=== PATIENT | male | born 1975 | race Caucasian/White ===

== ENCOUNTER 2023-02-14 08:47 | Observation (INO) | payer OTHER, SELFPAY ==
--- NOTE | ~2023-02-14 | CT_ITS ---
EXAMINATION: CT abdomen pelvis w con INDICATION: Epigastric pain TECHNIQUE: Computed tomographic images of the abdomen and pelvis were obtained after the administrati on of 100 cc of Omnipaque 350 intravenous contrast. The dose-length product (DLP) was 503.42 mGy-cm. Automated exposure control and iterative reconstruction technique were employed. COMPARISON: None available FINDINGS: Minimal dependent atelectasis is present in the lung bases. The heart size is normal. The l iver, spleen, and adrenal glands are normal. Stones are present in the nondistended gallbladder. The pancreas is normal in appearance. There is subtle edematous stranding of the peripancreatic fat near the body and tail. The kidneys are unremarkable. No pathologically enlarged abdominal or pelvic lymph nodes are identified. There is severe lumbar spondylosis at L5-S1. IMPRESSION: 1. Acute pancreatitis. 2. Cholelithiasis without evidence of cholecystitis. Reviewed, dictated and finalized at location A. H TENDER
--- NOTE | ~2023-02-14 | MR_ITS ---
EXAMINATION: MR MRCP wo/w con/w 3D wo ind DATE: 02/15/2023 10:56 INDICATION: Gallstone pancreatitis. TECHNIQUE: Magnetic resonance imaging (MRI) of the abdomen was performed without and with 16 mL Multi Amrit intravenous contrast. Sequences included coronal T2-weighted FS FSE, coronal T2-weighted FSE, a xial T1-weighted LAVA, coronal FS FIESTA, axial dual-echo T1-weighted SPGR, coronal lava-FLEX, sagitt al T2-weighted FSE, axial T2-weighted FSE, and axial DWI. Thick-slab T2-weighted FSE images were obta ined for magnetic resonance cholangiopancreatography (MRCP). Maximum intensity projection 3-D reconst ructions of the volumetric data were created by the technologist. Postcontrast sequences included cor onal LAVA-flex and time course of axial T1-weighted LAVA. COMPARISON: CT abdomen and pelvis 02/14/2023 FINDINGS: ABDOMEN MRI: There is a 4 mm cyst in the liver. There are gallstones in the gallbladder, which is nor mal in size. The spleen is normal. There is fat stranding around the pancreas, consistent with acute interstitial pancreatitis. The adrenal glands and kidneys are normal. There are no dilated loops of b owel. There are no pathologically enlarged lymph nodes. There is no free intraperitoneal fluid. There is severe lower lumbar spondylosis. ABDOMEN MRCP: The common duct is normal and measures 3 mm. No choledocholithiasis. IMPRESSION: 1. Normal common duct. No choledocholithiasis. 2. Cholelithiasis. 3. Acute interstitial pancreatitis. Reviewed, dictated and finalized at location A. R SLITTER
[2023-02-14 08:53] VITALS: BP 132/80; PULSE 74; RESP 16; TEMP 36.2; O2SAT 100
[2023-02-14 10:01] LABS: Basophils Absolute Auto 0.1 K/mm3 (0.0-0.1); Basophils Percent Auto 0.8 % (0.2-1.2); Eosinophils Absolute Auto 0.1 K/mm3 (0-0.3); Eosinophils Percent Auto 1.6 % (0-4.4); Hematocrit 48.1 % (42.0-52.0); Hemoglobin 16.2 g/dL (14.0-18.0); Immature Granulocyte Absolute 0.02 K/mm3 (0.00-0.031); Immature Granulocyte Percent A 0.3 % (0-0.5); Lymphocytes Absolute Auto 2.24 K/mm3 (0.9-3.2); Lymphocytes Percent Auto 30.7 % (18.3-44.2); Mean Corpuscular HGB Conc 33.7 g/dl (32-36); Mean Corpuscular Hemoglobin 34.2 pg (26-34); Mean Corpuscular Volume 101.7 fl (80-100); Mean Platelet Volume 11.2 fl (7.4-10.4); Monocytes Absolute Auto 0.7 K/mm3 (0.1-0.6); Monocytes Percent Auto 8.9 % (2.6-8.5); Neutrophils Absolute Auto 4.2 K/mm3 (1.3-6.7); Neutrophils Percent Auto 57.7 % (45.5-73.1); Platelet Count Result 203 k/mm3 (150-375); Red Blood Count 4.73 M/mm3 (4.6-6.20); Red Cell Distribution Width 11.5 % (11.5-14.5); White Blood Count 7.3 K/mm3 (4.5-10.0)
[2023-02-14 10:02] LABS: Appearance Urine Clear (Clear); Bilirubin Urine Negative (Negative); Blood Urine Negative (Negative); Color Urine Yellow (Yellow); Glucose Urine UA Negative (Negative); Ketones Urine Negative (Negative); Leukocyte Esterase Ur Negative LEU/UL (Negative); Nitrate Urine Negative (Negative); Protein Urine Negative (Negative); Specific Grav Ur 1.027 (1.001-1.035); pH Urine 5.5 (5.0-9.0)
[2023-02-14 10:08] LABS: Add Urine Microscopic? NO
[2023-02-14 10:11] LABS: Alanine Aminotransferase 39 U/L (6-50); Albumin Level 4.3 g/dL (3.5-5.1); Alkaline Phosphatase 46 U/L (38-126); Anion Gap 9 mmol/L (8-16); Aspartate Amino Transferase 32 U/L (17-59); Bilirubin,Total 0.5 mg/dL (0.2-1.3); Blood Urea Nitrogen 11 mg/dL (9-20); Calcium 9.4 mg/dL (8.4-10.2); Carbon Dioxide 28 mmol/L (22-30); Chloride 103 mmol/L (98-107); Estimated CRCL calculation 105 ml/min; Estimated Glomerular Filt Rate > 60; Glucose 122 mg/dL (65-110); Lipase 512 U/L (23-300); Potassium 4.3 mmol/L (3.4-5.0); Sodium 140 mmol/L (137-145)
--- NOTE | 2023-02-14 10:26 | ED.GENADULT ---
[facility] - General Adult General Chief complaint: Abdominal Pain Stated complaint: abd pain x 1 week Time Seen by Provider: 02/14/23 09:49 Source: patient Mode of arrival: ambulatory Limitations: no limitations History of Present Illness HPI narrative: This is a 47-year-old male who presents to the ED with chief complaint of generalized abdominal pain that began 1 week ago. Reports the pain is sometimes concentrates on the left side of the abdomen but otherwise has been diffuse. Reports that waxes and wanes in severity but was bad enough last night to have to take ibuprofen, so he came to the ER today for further evaluation. Endorses mild constipation and has bowel movements every other day. Also reports that he has been trying to work out more in the gym. Denies any specific food association with the pain. Denies fevers, chills, nausea, vomiting, diarrhea, urinary problems. Minimal relief with laxatives and ibuprofen. States he quit drinking altogether 3 weeks ago, and before that drink roughly twice per week. Related Data Home Medications Medication Instructions Recorded Confirmed No Home Medications 02/14/23 02/14/23 Allergies Allergy/AdvReac Type Severity Reaction Status Date / Time No Known Allergies Allergy Verified 02/14/23 08:48 Review of Systems Review of Systems: All systems as dictated in [facility] Social History Social History Smoking packs per day: 0.5 Smoking cigarettes per day: 10.0 Years smoked: 25 Smoking pack-years: 12.50 Smoking status: Current every day smoker Tobacco type: cigarettes Alcohol intake: current Drinks per week: 1 Substance use: never Substance use type: does not use Lack of Transportation: No Lack of Food: Never True Current Housing: I Have Housing Concerned About Future Housing: No Difficulty Paying Gas/Electric Bills: No Difficulty Paying for Meds: No Currently Unemployed: No Education: Decline to Answer Difficulty w/ Childcare or Family Care: No Spiritual care concerns: No Exam Narrative: GENERAL: Well-appearing, well-nourished, and in no acute distress. HEAD: Normocephalic, atraumatic. EYES: PERRLA and EOMI. ENT: Nares clear, no rhinorrhea or epistaxis. Mucous membranes moist. Oropharynx without tonsillar hypertrophy exudate or other lesions. NECK: Supple. No adenopathy or masses. CHEST: No respiratory distress. Clear to auscultation. No wheezes rales or rhonchi HEART: Regular rate and rhythm. No murmur heard. Normal peripheral pulses. ABDOMEN: Soft, nontender, nondistended, normal active bowel sounds. MSK: Normal range of motion. No edema. SKIN: Warm, dry, no rash. NEURO: Alert and oriented x3. No focal deficits. PSYCH: Normal mood and affect. Course Vital Signs Vital signs: Vital Signs Temperature 97.1 F L 02/14/23 08:53 Pulse Rate 74 02/14/23 08:53 Respiratory Rate 16 02/14/23 08:53 Blood Pressure 132/80 02/14/23 08:53 Pulse Oximetry 100 02/14/23 08:53 Oxygen Delivery Room Air 02/14/23 08:53 Temperature 97.1 F L 02/14/23 08:53 Pulse Rate 58 L 02/14/23 13:11 Respiratory Rate 20 02/14/23 13:11 Blood Pressure 111/79 02/14/23 13:11 Pulse Oximetry 100 02/14/23 13:11 Oxygen Delivery Room Air 02/14/23 14:15 Medical Decision Making [facility] Narrative Medical decision making narrative: This is a 47-year-old male who presents to the ED with chief complaint of 1 week of worsening of epigastric abdominal pain. Vitals are normal. Exam does reveal epigastric tenderness. Lab work reveals a normal white count. CMP grossly unremarkable. UA unremarkable. lipase elevated to 512. CT abdomen and pelvis with IV contrast reveals evidence of acute pancreatitis with peripancreatic fat stranding. There is cholelithiasis without evidence of cholecystitis. Overall symptoms are consistent with pancreatitis. He did not
[2023-02-14 12:05] LABS: Lactate Dehydrogenase 149 U/L (120-246)
[2023-02-14] MEDS: ONDANSETRON INJ 4 MG/2 ML VIAL IV PUSH (13:09)
[2023-02-14] MEDS: MORPHINE SULFATE (*CRX) 4 MG/ML INJ IV PUSH ×2 (13:09→20:46)
[2023-02-14 13:11] VITALS: BP 111/79; PULSE 58; RESP 20; O2SAT 100
--- NOTE | 2023-02-14 13:15 | ADMGEN ---
This patient, Octavio Ramirez, was admitted to 3 [facility] Surg Room 321-02 @ 2515. Patient/family oriented to hospital policies and general routines including ID bracelet, bed and alarms, visiting hours, pain management, procedures, bathroom and other care routines, personal items, smoking policy, room service/diet, and visiting hours. Information on how to activate the Rapid Response Team has been discussed. Patient/Family are encouraged to report perceived risks to care and to ask questions if they do not understand what they are told or what they should do.
--- NOTE | 2023-02-14 13:55 | PM.IMHP ---
H&P: HPI History of Present Illness Date/Time: 02/14/23 13:55 Chief Complaint: Abdominal pain. Narrative: This is a very pleasant 47-year-old male with hypertriglyceridemia on [place] 3 who presented to the emergency department via private vehicle from home for evaluation of abdominal pain. The patient provides the following history. One week ago this past Wednesday he developed a pretty abrupt onset of diffuse, sharp abdominal pain. It seems to common goes in waves of intensity and at times it settles more so into the left upper quadrant but not always. The pain will radiate to the back frequently. He has been taking ibuprofen before going to sleep as it seems to be worse at nighttime. Food seems to make the pain worse as well. His appetite has been okay. He endorses mild bloating. No significant nausea and he denies vomiting. Stools have been unremarkable. No fever, chills, or sweats. He has never had similar symptoms and he has no known history of gallstones, gallbladder disease, pancreatitis, or peptic ulcers. In the ED: He was afebrile on arrival with stable vital signs. Labs were significant for a WBC count of 7.3, MCV 101.7, normal LFTs, lipase 512. UA was unremarkable. CT of the abdomen and pelvis showed acute pancreatitis and cholelithiasis without evidence of cholecystitis. He is being admitted in this setting for further treatment and evaluation. He has not had any alcohol since [place], prior to that he admits to binge drinking a couple of times per week. No personal or family history of pancreatitis. He has high triglyceride for which he is on [place] 3 as detailed in HPI. Review of Systems Review of Systems: Twelve systems were reviewed and are negative except for as per HPI. [facility] Past Medical History Medical History Hypertriglyceridemia Tobacco use Surgical History Surgical History History of hernia repair Family History Family History (Updated 02/14/23 @ 23:27 by Darleen Spence PA-C) Father , from [place] at age 64. Acute myocardial infarction Social History Social History (Updated 02/14/23 @ 23:27 by Darleen Spence PA-C) Social History: Surrogate medical decision maker: Taj Ramirez, spouse. Code status: Full code. Smoking packs per day: 0.5 Smoking cigarettes per day: 10.0 Years smoked: 25 Smoking pack-years: 12.50 Smoking status: Current every day smoker Tobacco type: cigarettes Alcohol intake: current Drinks per week: 1 Alcohol use details: Prior to December 2022, he was binge drinking a couple of times a week. Substance use: never Substance use type: does not use Lack of Transportation: No Lack of Food: Never True Current Housing: I Have Housing Concerned About Future Housing: No Difficulty Paying Gas/Electric Bills: No Difficulty Paying for Meds: No Currently Unemployed: No Education: Decline to Answer Difficulty w/ Childcare or Family Care: No Additional living arrangements comments: Lives with spouse and children in [place]. Additional occupation/education comments: Retired from [employer]. Spiritual care concerns: No Meds Home Medications and Allergies Home Medications Medication Instructions Recorded Confirmed Type No Home Medications 02/14/23 02/14/23 History Allergies Allergy/AdvReac Type Severity Reaction Status Date / Time No Known Allergies Allergy Verified 02/14/23 08:48 Vital Signs Vital Signs - 24 hr 02/14/23 08:53 02/14/23 13:11 Temperature 97.1 F L Pulse Rate 74 58 L Respiratory Rate 16 20 Blood Pressure 132/80 111/79 Pulse Oximetry 100 100 Oxygen Delivery Room Air Exam Narrative: General: Well-developed, nontoxic-appearing male supine in bed in mild distress due to pain. Weight: 81.8 kg. BMI: 25.2. HEENT: Normocephalic, atraumatic. PERRL, EOMI. Sclera anicteric. Tacky mucous membranes. Neck: Supple.
[2023-02-14] MEDS: SODIUM CHLORIDE 0.9% IV 1,000 ML 150 ML IV CONT ×2 (14:08→20:46)
[2023-02-14 14:22] VITALS: BMI 25.1
[2023-02-14 21:05] VITALS: BP 114/69; PULSE 68; RESP 20; TEMP 36.6; O2SAT 98
[2023-02-15] MEDS: MORPHINE SULFATE (*CRX) 4 MG/ML INJ 2 MG IV PUSH (02:17)
[2023-02-15 05:00] VITALS: BP 111/65; PULSE 70; RESP 20; TEMP 36.7; O2SAT 98
[2023-02-15 06:53] LABS: Hematocrit 45.1 % (42.0-52.0); Hemoglobin 14.9 g/dL (14.0-18.0); Mean Corpuscular Hemoglobin 34.1 pg (26-34); Mean Corpuscular Volume 103.2 fl (80-100); Mean Platelet Volume 11.7 fl (7.4-10.4); Platelet Count Result 168 k/mm3 (150-375); Red Blood Count 4.37 M/mm3 (4.6-6.20); Red Cell Distribution Width 11.3 % (11.5-14.5); White Blood Count 6.1 K/mm3 (4.5-10.0)
[2023-02-15 07:05] LABS: Alanine Aminotransferase 34 U/L (6-50); Albumin Level 3.6 g/dL (3.5-5.1); Alkaline Phosphatase 44 U/L (38-126); Anion Gap 7 mmol/L (8-16); Aspartate Amino Transferase 32 U/L (17-59); Bilirubin,Total 0.7 mg/dL (0.2-1.3); Blood Urea Nitrogen 7 mg/dL (9-20); Calcium 8.5 mg/dL (8.4-10.2); Carbon Dioxide 27 mmol/L (22-30); Chloride 103 mmol/L (98-107); Estimated CRCL calculation 94 ml/min; Estimated Glomerular Filt Rate > 60; Glucose 111 mg/dL (65-110); Lipase 251 U/L (23-300); Potassium 3.8 mmol/L (3.4-5.0); Sodium 137 mmol/L (137-145); Triglycerides 155 mg/dL (<150)
[2023-02-15 10:12] LABS: Folic Acid 8.2 ng/mL (2.76->20)
--- NOTE | 2023-02-15 11:10 | PM.DS ---
DS: Admitting Diagnosis Discharge Date 02/15/2023 Admitting Diagnosis acute pancreatitis, cholelithiasis, hypertriglyceridemia, tobacco use DS: Discharge Diagnosis Discharge Diagnosis (1) Acute pancreatitis: Code(s): K85.90 - Acute pancreatitis without necrosis or infection, unspecified Status: Acute (2) Cholelithiasis: Code(s): K80.20 - Calculus of gallbladder without cholecystitis without obstruction Status: Acute (3) Hypertriglyceridemia: Code(s): E78.1 - Pure hyperglyceridemia Status: Acute (4) Tobacco use: Code(s): Z72.0 - Tobacco use Status: Acute DS: Summary Hospital Course Reason for hospitalization: abdominal pain with findings of gallstones and acute pancreatitis Hospital Course: 02/14: This is a very pleasant 47-year-old male with hypertriglyceridemia on [place] 3 who presented to the emergency department via private vehicle from home for evaluation of abdominal pain. The patient provides the following history. One week ago this past Wednesday he developed a pretty abrupt onset of diffuse, sharp abdominal pain. It seems to common goes in waves of intensity and at times it settles more so into the left upper quadrant but not always. The pain will radiate to the back frequently. He has been taking ibuprofen before going to sleep as it seems to be worse at nighttime. Food seems to make the pain worse as well. His appetite has been okay. He endorses mild bloating. No significant nausea and he denies vomiting. Stools have been unremarkable. No fever, chills, or sweats. He has never had similar symptoms and he has no known history of gallstones, gallbladder disease, pancreatitis, or peptic ulcers. In the ED: He was afebrile on arrival with stable vital signs. Labs were significant for a WBC count of 7.3, MCV 101.7, normal LFTs, lipase 512. UA was unremarkable. CT of the abdomen and pelvis showed acute pancreatitis and cholelithiasis without evidence of cholecystitis. He is being admitted in this setting for further treatment and evaluation. He has not had any alcohol since Halloween, prior to that he admits to binge drinking a couple of times per week. No personal or family history of pancreatitis. He has high triglyceride for which he is on [place] 3 as detailed in HPI. 02/15: This morning on rounds patient states that he has been pain free all night and has been tolerating water. Patient reports [facility] and that he wants to be discharged and continue bowel rest at home. Lipase improved on labs drawn this morning. Due to presence of gallstones and the findings of pancreatitis, ordered MRCP. Patient states he is insisting on discharge and will call his [facility] P[facility] if he needs anything else. MRCP still shows inflammation around the pancreas but no findings of stones in ducts. We again discussed with patient that he should stay in the hospital on IV fluids with slow advancing of diet as tolerated. He refused to stay and insisted on being discharged. Very clear discharge instructions written and return precautions discussed. Patient informed he should not smoke and should not start drinking again (he reports he stopped ETOH a month ago.) Time spent discussing smoking cessation with patient: 3 to 10 minutes Status at Discharge Cognitive/behavioral status at discharge: awake, alert, oriented and insistent on prompt discharge Functional status at discharge: independent ambulation Overall status at discharge: patient is progressing back to baseline Time Spent with Patient Time attestation: Total time spent providing and/or coordinating discharge services: 40 minutes Time spent: Greater than 30 minutes Exam Narrative: General: Well-developed, nontoxic-appearing male supine in bed, no distress noted. HEENT: Normocephalic, atraumatic. PERRL, EOMI. Sclera anicteric. Moist mucous membranes. Neck: Supple. No JVD Respiratory: Lungs are clear to auscultation bilaterally. Cardiovascular
== END 2023-02-15 12:25 | disposition home or self-care (01) ==
LOC: ANHED 12:27 → ANH3MEDSUR 13:07
PROVIDERS: General Practice; Physician Assistant; Admitting Provider Hospitalist; Emergency Provider Physician Assistant; Visit Provider Hospitalist
DX: K85.90 Acute pancreatitis without necrosis or infection, unspecified (principal); K80.20 Calculus of gallbladder without cholecystitis without obstruction; E78.1 Pure hyperglyceridemia; F17.210 Nicotine dependence, cigarettes, uncomplicated; F10.90 Alcohol use, unspecified, uncomplicated
CPT/HCPCS: 36415; 74177; 74183; 76376; 80053; 81003; 82607; 82746; 83615; 83690; 83735; 84478; 85025; 85027; 96361; 96374; 96375; 99285; A9577; G0378; J2270; J2405; J7030; Q9967